=== PATIENT | male | born 1995 | race African-American/Black ===

== ENCOUNTER 2018-09-03 11:09 | Emergency (ER) | payer MEDICAID ==
[~2018-09-03] VITALS: Ht 167.6 cm; Wt 72.6 kg
[~2018-09-03 11:09] MED LIST: AMOXICILLI250 MG/5 M ORAL; AZITHROMYCIN250 MG PO; BACTRIM-DS1 EA PO; IBUPROFEN600 MG ORAL; IBUPROFEN600 MG PO; KEFLEX500 MG ORAL; METRONIDAZOLE500 MG ORAL; NKM; PROMETHAZINE-C118 M1 ORAL; TYLENOL325 MG ORAL; VICODIN 5-5001 EACH PO
[2018-09-03] MEDS ORDERED: NKM (11:20)
--- NOTE | 2018-09-03 11:28 | NUR ---
ED Nurse Note: PT WALKED IN TO ER TODAY FROM HOME. AOX4. PT PRESENTS WITH ~2CM LACERATION TO RIGHT ELBOW AFTER FALLING X YESTERDAY. PT DENIES ANY PAIN AT THIS TIME. PT STATES HE WAS SEEN AT [facility] IN [place]. PER PT, XRAY SHOWED GLASS IN ELBOW BUT DUE TO CROWDING, PT WAS TOLD IT WOULD BE FASTER TO GO TO ANOTHER FACILITY FOR TREATMENT. SITE NOT DRESSED BUT NOT ACTIVELY BLEEDING. CIRCULATION AND SENSATION INTACT, CAP REFILL <3 SECONDS, FULL ROM OF EXTREMITY AND DIGIT, MUSCLE STRENGTH 5/5.
--- NOTE | 2018-09-03 11:28 | NUR ---
Note luca in EDM - 09/03/18 at 1133 by RITIKA ED Nurse Note: PT WALKED IN TO ER TODAY FROM HOME. AOX4. PT PRESENTS WITH ~2CM LACERATION TO RIGHT ELBOW AFTER FALLING X YESTERDAY. PT STATES HE WAS SEEN AT [facility] IN [place]. PER PT, XRAY SHOWED GLASS IN ELBOW BUT DUE TO CROWDING, PT WAS TOLD IT WOULD BE FASTER TO GO TO ANOTHER FACILITY FOR TREATMENT. SITE NOT DRESSED BUT NOT ACTIVELY BLEEDING. CIRCULATION AND SENSATION INTACT, CAP REFILL <3 SECONDS, FULL ROM OF EXTREMITY AND DIGIT, MUSCLE STRENGTH 5/5.
[2018-09-03 11:31] VITALS: BP 128/80
--- NOTE | 2018-09-03 11:50 | NUR ---
ED Nurse Note: XRAY AT BEDSIDE
[2018-09-03] MEDS ORDERED: Lidocaine 1% 10mg/ml/EPI 0.01mg/ml 30ml INJ ONE (12:15)
--- NOTE | 2018-09-03 12:34 | Diagnostic Imaging Report ---
Indications: Pain, trauma Technique: Two views of the right forearm Comparison: None Findings: 4 mm diameter triangular radiopaque foreign body is seen in superficial soft tissues medial to the distal ulna. 2 mm radiopaque foreign body is seen in the dorsal soft tissues posterior to the proximal to mid ulna. No acute fractures. No dislocations. The joint spaces are preserved. Impression: Positive for foreign bodies, as described Findings discussed by phone with Dr. Newby in the emergency room at the time of interpretation
--- NOTE | 2018-09-03 12:36 | Diagnostic Imaging Report ---
Indications:Pain, trauma, possible foreign body Technique: Three or 4 views of the right elbow Comparison: None Findings: 2 mm radiopaque superficial foreign body seen at the dorsal aspect of the proximal forearm. Questionable punctate foreign body is seen dorsal to the olecranon. No other definite foreign bodies demonstrated. No acute fractures. No dislocations. The joint spaces are preserved. No effusion Impression: Positive for foreign bodies, as described No acute bony trauma Findings previously discussed by phone with Dr. Newby in the emergency room
--- NOTE | 2018-09-03 12:55 | Emergency Room Report ---
History of Present Illness General Chief Complaint: Upper Extremity Injury Source: Patient Present Illness HPI 23-year-old male presents to the emergency department complaining of 7 out of 10 in severity tenderness to multiple small lacerations on his right forearm 2 days. Patient reports that he fell on some broken glass and a day ago he had an x-ray performed which showed retained foreign bodies. Patient states she is up-to-date with his tetanus vaccination denies bleeding at this time reports some mild purulent discharge out of one of the wounds. Patient denies bony tenderness or pain. Patient denies taking blood thinning medications and has no history of immunocompromise. Pain is exacerbated upon palpation to the areas that have the retained foreign body rest is a relieving factor no paresthesias no weakness or loss of gross motor movements. Allergies: Coded Allergies: No Known Allergies (Unverified , 07/14/12) Patient History Past Medical History: see triage record Past Surgical History: none Pertinent Family History: none Immunizations: UTD Reviewed Nursing Documentation: PMH: Agreed; PSxH: Agreed Nursing Documentation-PMH Past Medical History: No Stated History Hx Asthma: Yes Review of Systems All Other Systems: negative except mentioned in HPI Physical Exam Vital Signs Date Time Temp Pulse Resp B/P (MAP) Pulse Ox O2 Delivery O2 Flow Rate FiO2 09/03/18 11:17 98.2 81 17 133/83 97 Room Air Sp02 EP Interpretation: reviewed, normal General Appearance: no apparent distress, alert, GCS 15, non-toxic Head: normocephalic, atraumatic Eyes: bilateral eye normal inspection, bilateral eye PERRL ENT: hearing grossly normal, normal voice Neck: full range of motion Respiratory: lungs clear, normal breath sounds, speaking full sentences Cardiovascular #1: regular rate, rhythm Musculoskeletal: back normal, gait/station normal, normal range of motion, non- tender Neurologic: alert, oriented x3, responsive, motor strength/tone normal, sensory intact, speech normal, grossly normal Psychiatric: judgement/insight normal Skin: normal color, no rash, warm/dry, well hydrated, abrasions - multiples abrasions to the forearms bilaterally, laceration - right elbow avulsion 1 cm - grossly contaminated. 0.5 cm medial right forearm laceration w. fb, 0.5cm lateral right forearm laceration with fb. Procedures Laceration/Wound Repair Laceration/Wound Repair : Wound Length (cm): 0 Irrigated w/ Saline (ccs): 500 Additional Procedure Procedure Narrative PROCEDURE: SUPERFICIAL SOFT TISSUE SLIVER FB REMOVAL: Verbal consent from patient was obtained to remove superficial ST FB from Right forearm. Areas were cleaned and draped in a sterile fashion using swabs from I & D kit. gentle Scraping/incision using no. 11 blade was used until the sllivers of glass were visualized and removed, pt. no longer had pain upon palpation. Pt. tolerated well. there were no complications. -bacitracin and sterile dressing was applied by brass sorter. Medical Decision Making PA Attestation Dr. Newby is my supervising Physician whom patient management has been discussed with. Diagnostic Impression: Primary Impression: Foreign body in soft tissue Additional Impression: Abrasions of multiple sites ER Course right elbow avulsion 1 cm - grossly contaminated. 0.5 cm medial right forearm laceration w. fb, 0.5cm lateral right forearm laceration with fb. Ddx considered but are not limited to cellulitis, retained FB, cyst/abscess, puncture wound, laceration Vital signs: are WNL, pt. is afebrile H&PE are most consistent with retained FB in the ST of RIGHT FOREARM ORDERS: none required at this time, the diagnosis is clinical - - X-ray Right Forearm - POSITIVE FOR 2 ST RETAINED RADIOPAQUE FB's ED INTERVENTIONS: - FB Removal -- - Bacitracin is applied. -Steri-Strips to elbow lac. DISCHARGE: At this time pt. is stable for d/c to home. Will provide printed patient care instructions, and any necessary prescriptions. Care plan and follow up instructions have been discussed with the patient prior to discharge. Other X-Ray Diagnostic Results Other X-Ray Diagnostic Results : X-Ray ordered: Right forearm # of Views/Limited Vs Complete: 3 View Indication: Pain EP Interpretation: Yes PA Xray: Interpretation reviewed, by supervising MD, and agrees with findings. Interpretation: no dislocation, no soft tissue swelling, no fractures, other - 2 radiopaque fb's Impression: Other - abnormal : ST FB's Electronically Signed by: Whit Parra PA-C Last Vital Signs Date Time Temp Pulse Resp B/P (MAP) Pulse Ox O2 Delivery O2 Flow Rate FiO2 09/03/18 11:31 98.4 78 18 128/80 99 Room Air Disposition: HOME, SELF-CARE Condition: Stable Scripts Bacitracin/Polymyxin B Sulfate (BACITRACIN-POLYMYXIN OINTMENT) 28.35 Gm Oint...g. 1 APPLIC TP BID, #28.3 GM Prov: Whit Parra 09/03/18 Cephalexin* (KEFLEX*) 500 Mg Capsule 500 MG ORAL EVERY 12 HOURS for 7 Days, #14 CAP 0 Refills Prov: Whit Parra 09/03/18 Referrals: NOT CHOSEN IPA/MD,REFERRING (PCP) Departure Forms: Return to Work Return to Work Date: Sep 09, 2018 Work Restrictions: None Other Restrictions: May return Sooner if Symptoms have resolved. Return to Full Activity: Sep 09, 2018 Patient Instructions: Nonsutured Laceration Care, Sliver Removal, Care After Additional Instructions: Take medications as directed. Follow up with a Primary Care Provider in 3-5 days, even if your symptoms have resolved. --Please review list of primary care clinics, if you do not already have a primary care provider Return sooner to ED if new symptoms occur, or current symptoms become worse. - Please note that this Emergency Department Report was dictated using [employer] software engineer technology software, occasionally this can lead to erroneous entry secondary to interpretation by the dictation equipment. Whit Parra Sep 03, 2018 12:55
[2018-09-03] MEDS ORDERED: CEPHALEXIN500 MG ORAL (12:56)
[2018-09-03] MEDS ORDERED: BACITRACIN-P28.35 GM TP (12:56)
[2018-09-03] MEDS ORDERED: Bacitracin Oint UD TOPIC ONE (13:00)
[2018-09-03 13:10] VITALS: BP 122/76
--- NOTE | 2018-09-03 13:10 | NUR ---
ED Nurse Note: PT SITTING PEACEFULLY IN BED IN NAD. AOX4. PRESCRIPTIONS AND DISCHARGE PAPERWORK EXPLAINED TO PT. PT VERBALIZES UNDERSTANDING AND ALL QUESTIONS ANSWERED. PRESCRIPTIONS AND DISCHARGE PAPERWORK GIVEN TO PT AND ID WRISTBAND REMOVED. PT WALKED OUT OF ER WITH STEADY GAIT AND ALL BELONGINGS.
== END 2018-09-03 13:12 | disposition home or self-care (01) ==
LOC: EMR 11:55
DX: M79.5 Residual foreign body in soft tissue (principal); S51.022A Laceration with foreign body of left elbow, initial encounter; S51.021A Laceration with foreign body of right elbow, initial encounter; S51.001A Unspecified open wound of right elbow, initial encounter; W01.110A Fall on same level from slipping, tripping and stumbling with subsequent striking against sharp glass, initial encounter; Y92.9 Unspecified place or not applicable
CPT/HCPCS: 10120; 73080; 73090; 99283; Z7502

== ENCOUNTER 2019-01-31 08:13 | Emergency (ER) | payer SELFPAY ==
[~2019-01-31] VITALS: Ht 167.6 cm; Wt 72.6 kg
[~2019-01-31 08:13] MED LIST changes: +BACITRACIN-P28.35 GM TP; +CEPHALEXIN500 MG ORAL
--- NOTE | 2019-01-31 08:20 | NUR ---
ED Nurse Note: Patient walked in c/o headache, 'my whole head'; 'my head start hurting when I get to work' for the past few days; pt reports no head injury. Reports no N/V. denies any alcohol or drug use. Pt is A&O x4, V/S stable with no s/s of acute distress noted at this time. ERMD at bedside evaluating the pt.
[2019-01-31 08:26] VITALS: BP 114/74
[2019-01-31] MEDS ORDERED: Ketorolac 30mg Inj IM ONE (09:00)
[2019-01-31] MEDS ORDERED: TRAMADOL HCL50 MG ORAL (09:13)
[2019-01-31 09:22] VITALS: BP 118/69
--- NOTE | 2019-01-31 09:22 | NUR ---
ER DISCHARGE NOTE: Patient is cleared to be discharged per ERMD, pt is aox4, on room air, with stable vital signs. pt was given dc and prescription instructions, pt was able to verbalize understanding, pt id band removed. pt is able to ambulate with steady gait. pt took all belongings.
--- NOTE | 2019-01-31 14:08 | Emergency Room Report ---
History of Present Illness General Chief Complaint: Headache Source: Patient Present Illness HPI 23-year-old male presents ED for evaluation. Patient complaining of headache for the last 2 days. Frontal, throbbing, 8 out of 10, nonradiating. Denies photophobia or blurry vision. Denies nausea or vomiting. Denies neck stiffness. Denies fevers or chills. States that he believes it is stress related because he is working a lot. Has had headaches like this in the past and has had to come to the ER for medication which helps. No other aggravating relieving factors. Denies any other associated symptoms Allergies: Coded Allergies: No Known Allergies (Unverified , 07/14/12) Patient History Past Medical History: none Past Surgical History: none Pertinent Family History: none Social History: Denies: smoking, alcohol use, drug use Immunizations: UTD Reviewed Nursing Documentation: PMH: Agreed; PSxH: Agreed Nursing Documentation-PMH Past Medical History: No Stated History Hx Asthma: Yes Review of Systems All Other Systems: negative except mentioned in HPI Physical Exam Vital Signs Date Time Temp Pulse Resp B/P (MAP) Pulse Ox O2 Delivery O2 Flow Rate FiO2 01/31/19 08:19 98.2 63 16 114/74 (87) 96 Room Air Sp02 EP Interpretation: reviewed, normal General Appearance: no apparent distress, alert, GCS 15, non-toxic Head: normocephalic Eyes: bilateral eye normal inspection, bilateral eye PERRL ENT: hearing grossly normal, normal pharynx, no angioedema, normal voice Neck: full range of motion, supple, no meningismus, supple/symm/no masses Respiratory: normal inspection Cardiovascular #1: normal inspection Gastrointestinal: normal inspection Rectal: deferred Genitourinary: no CVA tenderness Musculoskeletal: normal inspection Neurologic: alert, oriented x3, responsive, motor strength/tone normal, sensory intact, speech normal Psychiatric: normal inspection Skin: no rash Lymphatic: normal inspection Medical Decision Making Diagnostic Impression: Primary Impression: Headache Qualified Codes: R51 - Headache ER Course Hospital Course 23 yo M presents to ED c/o headache Differential diagnoses include: tension headache, migraine, dehydration, intracranial bleed Clinical course Patient placed on stretcher. After initial history, exam reveals male in no acute distress. No focal neurological deficits. Extraocular movements intact. Cranial nerves II through XII intact. No nuchal rigidity. No photophobia. Visual acuity intact. Reviewed CURES; no narcotics being prescribed to the patient. Patient states tramadol has helped in the past. Will prescribe a 3-day course of tramadol. Provided with work note. Given Toradol in ED with headache improving. Safe for discharge for close outpatient follow-up. Will provide referrals i. I feel this is a highly complex case requiring extensive working including EKG/Rhythm strip, Xray/CT/US, Blood/urine lab work, repeat exams while in ED, and administration of strong opiates/narcotics for pain control, admission to hospital or close patient follow up. Diagnosis - headache stable and discharged to home with Tramadol. f/u with PMD. return to ED if symptoms recur/worsen. Last Vital Signs Date Time Temp Pulse Resp B/P (MAP) Pulse Ox O2 Delivery O2 Flow Rate FiO2 01/31/19 09:22 98.2 71 14 118/69 98 Room Air Status: improved Disposition: HOME, SELF-CARE Condition: Stable Scripts Tramadol Hcl* (ULTRAM*) 50 Mg Tablet 50 MG ORAL Q6H PRN for For Pain, #12 TAB 0 Refills Prov: Ubaldo Khan MD 01/31/19 Referrals: NOT CHOSEN IPA/,REFERRING (PCP) Kelby Lui [facility] Departure Forms: Return to Work Return to Work Date: Feb 02, 2019 Work Restrictions: None Patient Instructions: General Headache Without Cause Ubaldo Khan MD Jan 31, 2019 14:08
== END 2019-01-31 09:22 | disposition home or self-care (01) ==
LOC: EMR 08:48
DX: R51 Headache (principal); J45.909 Unspecified asthma, uncomplicated
CPT/HCPCS: 96372; 99283; J1885

== ENCOUNTER 2019-05-07 00:55 | Emergency (ER) | payer SELFPAY ==
[~2019-05-07 00:55] MED LIST changes: +TRAMADOL HCL50 MG ORAL
--- NOTE | 2019-05-07 01:05 | NUR ---
ED Nurse Note: Patient was called,patient is not in the weiting room.
--- NOTE | 2019-05-07 01:10 | NUR ---
ED Nurse Note: Patient was called second time, not in the weiting room.
--- NOTE | 2019-05-07 01:12 | NUR ---
ED Nurse Note: Patient left without being seen.
== END 2019-05-07 01:12 | disposition left against medical advice (07) ==
LOC: EMR 01:12
DX: R50.9 Fever, unspecified (principal); Z53.21 Procedure and treatment not carried out due to patient leaving prior to being seen by health care provider

== ENCOUNTER 2020-07-19 02:25 | Emergency (ER) | payer SELFPAY ==
[~2020-07-19] VITALS: Ht 170.2 cm; Wt 72.6 kg
--- NOTE | 2020-07-19 02:41 | NUR ---
ED Nurse Note: Patient walked into the ED due tot sore throat and right ear pain x 5 days ago. pt do not have fever and denied cough. Vitals are stable.
[2020-07-19 02:43] VITALS: BP 134/98
[2020-07-19] MEDS ORDERED: AUGMENTIN 875-1 EAC1 ORAL (02:56)
[2020-07-19] MEDS ORDERED: HYDROCODON-ACE1 EA15 ORAL (02:56)
[2020-07-19] MEDS ORDERED: IBUPROFEN600 M1 ORAL (02:56)
--- NOTE | 2020-07-19 02:56 | Emergency Room Report ---
History of Present Illness General Chief Complaint: Sore Throat Source: Patient Present Illness HPI This is a 25-year-old male with no past medical history. He presents with chief complaint of sore throat but no ear pain. Onset for last 5 days. No fever chills. Little swollen on the right side. Worse with swallowing. Pain is 10 out of 10. No cough or congestion. No runny nose. Pain rating to the ear. Allergies: Coded Allergies: No Known Allergies (Unverified , 07/14/12) COVID-19 Screening Contact w/high risk pt: No Experienced COVID-19 symptoms?: No COVID-19 Testing performed CUSTOMER SUPPORT ASSOCIATE: No COVID-19 Testing Source: [facility] Patient History Past Medical History: see triage record, old chart reviewed Past Surgical History: none Pertinent Family History: none Social History: Denies: smoking Immunizations: other Reviewed Nursing Documentation: PMH: Agreed; PSxH: Agreed Nursing Documentation-PMH Past Medical History: No Stated History Hx Asthma: Yes Review of Systems Eye: Denies: eye pain, blurred vision ENT: Reports: ear pain, throat pain; Denies: nose congestion, throat swelling Respiratory: Denies: cough, shortness of breath Cardiovascular: Denies: chest pain, palpitations Gastrointestinal: Denies: abdominal pain, diarrhea, nausea, vomiting Musculoskeletal: Denies: back pain, joint pain Skin: Denies: rash Neurological: Denies: headache, numbness Endocrine: Denies: increased thirst, increased urine Hematologic/Lymphatic: Denies: easy bruising All Other Systems: negative except mentioned in HPI Physical Exam Vital Signs Date Time Temp Pulse Resp B/P (MAP) Pulse Ox O2 Delivery O2 Flow Rate FiO2 07/19/20 02:30 97.9 90 20 134/98 (110) 98 Room Air Vitals normal Sp02 EP Interpretation: reviewed, normal General Appearance: well appearing, no apparent distress, alert Head: normocephalic, atraumatic Eyes: bilateral eye PERRL, bilateral eye EOMI ENT: hearing grossly normal, tonsillar swelling, pharyngeal erythema, tonsillar exudate Neck: full range of motion, supple, no meningismus Respiratory: chest non-tender, lungs clear, normal breath sounds Cardiovascular #1: regular rate, rhythm, no murmur Gastrointestinal: normal bowel sounds, non tender, no mass, no organomegaly, no bruit, non-distended Musculoskeletal: back normal, normal range of motion, gait/station normal Psychiatric: mood/affect normal Medical Decision Making Diagnostic Impression: Primary Impression: Acute tonsillitis Qualified Codes: J03.90 - Acute tonsillitis, unspecified ER Course This patient presents with sore throat and has exudative tonsillitis. Most likely strep throat. No evidence of peritonsillar abscess, retropharyngeal abscess or Rony angina. Will discharge home. Last Vital Signs Date Time Temp Pulse Resp B/P (MAP) Pulse Ox O2 Delivery O2 Flow Rate FiO2 07/19/20 02:43 97.9 20 134/98 98 Room Air 07/19/20 02:30 90 Status: improved Disposition: HOME, SELF-CARE Condition: Stable Scripts Ibuprofen* (MOTRIN*) 600 Mg Tablet 600 MG ORAL Q6H PRN for For Pain, #30 TAB 0 Refills Prov: Gary Deng MD 07/19/20 Hydrocodone/Acetaminophen 5-325* (HYDROCODONE/ACETAMINOPHEN 5-325*) 1 Each Tablet 1 TAB ORAL Q6H PRN for For Pain, #15 TAB 0 Refills Prov: Gary Deng MD 07/19/20 Amoxicillin/Potassium Clav 875-125* (AUGMENTIN 875-125 TABLET*) 1 Each Tablet 1 TAB ORAL TWICE A DAY, #14 TAB Prov: Gary Deng MD 07/19/20 Patient Instructions: Strep Throat Additional Instructions: Follow-up with your doctor in 3 to 5 days. Return if symptoms worsen. Gary Deng MD Jul 19, 2020 02:56
[2020-07-19] MEDS ORDERED: Augmentin 875mg Tab ORAL ONE (03:00)
[2020-07-19] MEDS ORDERED: Morphine Sulfate 10mg/ml Inj IM ONE (03:00)
[2020-07-19 03:14] VITALS: BP 129/78
--- NOTE | 2020-07-19 03:14 | NUR ---
ER DISCHARGE NOTE: Patient is cleared to be discharged per ERMD, pt is aox4, on room air, with stable vital signs. pt was given dc and prescription instructions, pt was able to verbalize understanding, pt id band removed without complications. pt is able to ambulate with steady gait. pt took all belongings.
== END 2020-07-19 03:30 | disposition home or self-care (01) ==
LOC: EMR 02:50
DX: J03.90 Acute tonsillitis, unspecified (principal)
CPT/HCPCS: 96372; 99283; J2270; J7512